=== PATIENT | male | born 1980 | race Asian ===

== ENCOUNTER 2017-07-28 10:13 | Emergency (ER) | payer OTHER ==
[~2017-07-28] VITALS: Ht 177.8 cm; Wt 105.2 kg
== END 2017-07-28 12:30 | disposition home or self-care (01) ==
LOC: ED 10:13
DX: S93.401A Sprain of unspecified ligament of right ankle, initial encounter (principal); S96.911A Strain of unspecified muscle and tendon at ankle and foot level, right foot, initial encounter; X50.1XXA Overexertion from prolonged static or awkward postures, initial encounter; Y92.098 Other place in other non-institutional residence as the place of occurrence of the external cause
CPT/HCPCS: 96372; 99283; J1885